=== PATIENT | female | born 2000 | race Two or more races ===

== ENCOUNTER 2020-05-11 18:09 | Inpatient (IN) | payer OTHER ==
[~2020-05-11] VITALS: Ht 152.4 cm; Wt 64.8 kg
--- NOTE | 2020-05-11 18:30 | NUR ---
THIS IS A 19 YO FEMALE COMING IN FROM [facility] FOR PERIUMBILICAL/ EPIGASTRIC ABD PAIN STARTING FRIDAY, N/V, DENIES DIARRHEA. 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 RUQ SONOGRAM DONE AT SENDING FACILITY, FOUND TO HAVE STONE IN NECK OF GALLBLADDER. A&OX4, MONITORING IN PLACE, VSS, NADN, CALL LIGHT IN REACH.
[2020-05-11 18:46] LABS: BASOPHILS # (AUTO) 0.04 x10^3/uL (0-0.3); BASOPHILS % (AUTO) 1 % (0-1); EOSINOPHILS # (AUTO) 0.07 x10^3/uL (0-0.8); EOSINOPHILS % (AUTO) 1 % (1-7); LYMPHOCYTES # (AUTO) 1.91 x10^3/uL (1-6.1); LYMPHOCYTES % (AUTO) 32 % (22-44); MD NO; MEAN CORPUSCULAR HEMOGLOBIN 30.9 pg (27.0-34.8); MEAN CORPUSCULAR HGB CONC 33.5 g/dL (32.4-35.8); MEAN CORPUSCULAR VOLUME 92.3 fL (80-100); MEAN PLATELET VOLUME 10.1 fL (7.4-10.4); MONOCYTES # (AUTO) 0.41 x10^3/uL (0-1.4); MONOCYTES % (AUTO) 7 % (2-9); NEUTROPHILS # (AUTO) 3.59 x10^3/uL (1.8-8.0); NEUTROPHILS % (AUTO) 60 % (42-75); PLATELET COUNT 269 x10^3/uL (130-400); RED CELL DISTRIBUTION WIDTH 13.8 % (9.6-15.2)
[2020-05-11 18:58] LABS: CHLORIDE 105 mmol/L (98-107)
[2020-05-11 19:07] LABS: ALANINE AMINOTRANSFERASE 827 U/L (12-78); ALBUMIN 3.4 g/dL (3.4-5.0); ALKALINE PHOSPHATASE 248 U/L (45-117); ANION GAP 9 mmol/L (5-15); BILIRUBIN,TOTAL 1.8 mg/dL (0.2-1.0); CALCIUM 8.6 mg/dL (8.5-10.1); CREATININE 0.84 mg/dL (0.55-1.02); TOTAL PROTEIN 7.7 g/dL (6.4-8.2)
--- NOTE | 2020-05-11 19:33 | NUR ---
PATIENT RESTING ON GURNEY, RESPIRATIONS EVEN AND UNLABORED, MOTHER IN ROOM AT THIS TIME. AWAITING GI CONSULT.
--- NOTE | 2020-05-11 19:59 | NUR ---
MRI FORM COMPLETED AND FAXED. CONFIRMATION RECEIVED
--- NOTE | 2020-05-11 20:19 | NUR ---
PATIENT TO MRI
[2020-05-11] MEDS ORDERED: ONDANSETRON 2MG/ML, 2ML IVPush PRN ×2 (20:30→21:30)
[2020-05-11] MEDS ORDERED: MORPHINE SULFATE 4 MG/ML, 1ML IVPush PRN (20:30)
--- NOTE | 2020-05-11 20:54 | NUR ---
LUNCH BREAK NOTE: PT BACK FROM MRI. HOSPITALIST AT BEDSIDE.
--- NOTE | 2020-05-11 21:22 | NUR ---
REPORT GIVEN TO JANET TALLEY. PLAN OF CARE DISCUSSED
[2020-05-11] MEDS ORDERED: BISACODYL 10 MG SUPP PR PRN (21:30)
[2020-05-11] MEDS ORDERED: ACETAMINOPHEN 325 MG TABLET PO PRN (21:30)
[2020-05-11] MEDS ORDERED: morphine SULFATE 10 MG/ML, 1ML IVPush PRN (21:30)
[2020-05-11 21:40] VITALS: BP 109/77
[2020-05-11] MEDS: SODIUM CHLORIDE 0.9% 1,000 ML IV SCH (22:21)
[2020-05-12 00:23] VITALS: BP 102/68
[2020-05-12 05:49] LABS: BASOPHILS # (AUTO) 0.05 x10^3/uL (0-0.3); BASOPHILS % (AUTO) 1 % (0-1); EOSINOPHILS % (AUTO) 2 % (1-7); LYMPHOCYTES # (AUTO) 1.95 x10^3/uL (1-6.1); LYMPHOCYTES % (AUTO) 31 % (22-44); MD NO; MEAN CORPUSCULAR HEMOGLOBIN 30.4 pg (27.0-34.8); MEAN CORPUSCULAR HGB CONC 32.7 g/dL (32.4-35.8); MEAN CORPUSCULAR VOLUME 93.1 fL (80-100); MEAN PLATELET VOLUME 10.2 fL (7.4-10.4); MONOCYTES # (AUTO) 0.56 x10^3/uL (0-1.4); MONOCYTES % (AUTO) 9 % (2-9); NEUTROPHILS # (AUTO) 3.57 x10^3/uL (1.8-8.0); NEUTROPHILS % (AUTO) 57 % (42-75); PLATELET COUNT 239 x10^3/uL (130-400); RED BLOOD COUNT 4.59 x10^6/uL (3.82-5.3); RED CELL DISTRIBUTION WIDTH 13.7 % (9.6-15.2)
[2020-05-12 05:52] LABS: ANION GAP 7 mmol/L (5-15); CALCIUM 8.8 mg/dL (8.5-10.1); CHLORIDE 110 mmol/L (98-107)
[2020-05-12 05:57] LABS: ALANINE AMINOTRANSFERASE 714 U/L (12-78); ALKALINE PHOSPHATASE 231 U/L (45-117); BILIRUBIN,TOTAL 2.5 mg/dL (0.2-1.0); CREATININE 0.91 mg/dL (0.55-1.02); TOTAL PROTEIN 6.5 g/dL (6.4-8.2)
[2020-05-12 06:44] VITALS: BP 100/62
[2020-05-12 08:43] LABS: INTERNATIONAL NORMALIZED RATIO 0.97 (0.93-1.1); PROTHROMBIN TIME 10.3 Seconds (9.6-11.5)
[2020-05-12] MEDS: SODIUM CHLORIDE 0.9% 1,000 ML IV SCH (10:14)
[2020-05-12 12:43] VITALS: BP 97/61
[2020-05-12] MEDS ORDERED: ALBUTEROL SULFATE 200 PUFFS/8.5 GR INH ONE (13:34)
[2020-05-12] MEDS ORDERED: CHLORHEXIDINE 15 ML UDC ONE (13:51)
[2020-05-12] MEDS ORDERED: CHLORHEXIDINE 15 ML UDC MM STA (13:53)
[2020-05-12] MEDS ORDERED: SUGAMMADEX 200 MG/2 ML IVPush ONE (14:24)
[2020-05-12] MEDS ORDERED: PROPOFOL 10 MG/ML, 20ML ONE (14:24)
[2020-05-12] MEDS ORDERED: SUCCINYLCHOLINE 20 MG/ML, 10ML ONE (14:24)
[2020-05-12] MEDS ORDERED: ROCURONIUM 10 MG/ML,10ML ONE (14:24)
[2020-05-12] MEDS ORDERED: ONDANSETRON 2MG/ML, 2ML ONE (14:24)
[2020-05-12] MEDS ORDERED: FENTANYL PF 100 MCG/2ML ONE (14:39)
[2020-05-12 18:54] VITALS: BP 88/52
[2020-05-12 21:11] VITALS: BP 88/51
[2020-05-12] MEDS ORDERED: SODIUM CHLORIDE 0.9% 1,000ML IVBOLUS ONE (22:30)
[2020-05-12 23:15] VITALS: BP_SYST 84; BP_SYST 87; BP_DIAS 56; BP_DIAS 60
[2020-05-13] VITALS (7 sets, daily range): BP systolic 84–100; BP diastolic 43–65
[2020-05-13] MEDS ORDERED: SODIUM CHLORIDE 0.9% 1,000 ML IV SCH ×2 (01:00→21:07)
[2020-05-13] MEDS ORDERED: ALBUMIN HUMAN 25% 100 ML IV ONE (01:00)
[2020-05-13 01:49] LABS: BASOPHILS # (AUTO) 0.03 x10^3/uL (0-0.3); BASOPHILS % (AUTO) 1 % (0-1); EOSINOPHILS # (AUTO) 0.11 x10^3/uL (0-0.8); EOSINOPHILS % (AUTO) 2 % (1-7); LYMPHOCYTES # (AUTO) 2.75 x10^3/uL (1-6.1); LYMPHOCYTES % (AUTO) 39 % (22-44); MD NO; MEAN CORPUSCULAR HEMOGLOBIN 30.8 pg (27.0-34.8); MEAN CORPUSCULAR VOLUME 93.4 fL (80-100); MEAN PLATELET VOLUME 10.4 fL (7.4-10.4); MONOCYTES # (AUTO) 0.51 x10^3/uL (0-1.4); MONOCYTES % (AUTO) 7 % (2-9); NEUTROPHILS # (AUTO) 3.58 x10^3/uL (1.8-8.0); NEUTROPHILS % (AUTO) 51 % (42-75); PLATELET COUNT 247 x10^3/uL (130-400); RED BLOOD COUNT 4.87 x10^6/uL (3.82-5.3); RED CELL DISTRIBUTION WIDTH 13.6 % (9.6-15.2)
[2020-05-13 01:53] LABS: ALANINE AMINOTRANSFERASE 682 U/L (12-78); ALBUMIN 3.2 g/dL (3.4-5.0); ANION GAP 8 mmol/L (5-15); CALCIUM 7.9 mg/dL (8.5-10.1); CHLORIDE 110 mmol/L (98-107); CREATININE 0.82 mg/dL (0.55-1.02)
[2020-05-13 01:56] LABS: ALKALINE PHOSPHATASE 244 U/L (45-117); TOTAL PROTEIN 7.8 g/dL (6.4-8.2)
[2020-05-13] MEDS ORDERED: BUPIVACAINE/EPI 0.5% 1:200K ONE (07:01)
[2020-05-13] MEDS ORDERED: SODIUM CHLORIDE 0.9% 1,000ML IVBOLUS ONE ×2 (07:30)
[2020-05-13] MEDS: PIPERACILLIN/TAZO/PMX 3.375GM 50 ML IV SCH ×3 (08:00→20:32)
[2020-05-13] MEDS ORDERED: POTASSIUM CHLORIDE 40 MEQ in SODIUM CHLORIDE 0.9% 500 ML IV ONE (08:00)
[2020-05-13] MEDS ORDERED: MIDAZOLAM 1 MG/ML, 2ML ONE (09:21)
[2020-05-13] MEDS ORDERED: FENTANYL PF 250 MCG/5ML ONE (09:21)
[2020-05-13] MEDS ORDERED: KETOROLAC 30 MG/1 ML ONE (09:34)
[2020-05-13] MEDS ORDERED: CEFOTETAN 2 GM ONE (09:34)
[2020-05-13] MEDS ORDERED: BUPIVACAINE/EPI 0.5% 1:200K IM ONE (09:57)
[2020-05-13] MEDS ORDERED: hydrALAzine 20 MG/ML, 1ML IV PRN (10:00)
[2020-05-13] MEDS ORDERED: OXYcodone 5 MG/5 ML ORAL.SOL UDC PO PRN (10:00)
[2020-05-13] MEDS ORDERED: DIPHENHYDRAMINE 50 MG/ML, 1ML IVPush PRN (10:00)
[2020-05-13] MEDS ORDERED: HALOPERIDOL 5 MG/ML IV PRN (10:00)
[2020-05-13] MEDS ORDERED: LABETALOL 5MG/ML, 20ML IV PRN (10:00)
[2020-05-13] MEDS ORDERED: FENTANYL PF 100 MCG/2ML IV PRN (10:00)
[2020-05-13] MEDS ORDERED: HYDROmorphone 1 MG/ML, 1ML INJ IVPush PRN (10:00)
[2020-05-13] MEDS ORDERED: PROMETHAZINE 25 MG/ML, 1ML IVPush PRN (10:00)
[2020-05-13] MEDS ORDERED: MEPERIDINE/PF 25MG/0.5ML IVPush PRN (10:00)
[2020-05-13] MEDS ORDERED: OXYcodone 5 MG/5 ML ORAL.SOL UDC ONE (10:38)
[2020-05-13] MEDS ORDERED: DEXAMETHASONE 4 MG/ML, 1ML ONE (12:06)
[2020-05-13] MEDS ORDERED: ONDANSETRON 2MG/ML, 2ML ONE (12:06)
[2020-05-13] MEDS ORDERED: NEOSTIGMINE 1 MG/ML, 10ML ONE (12:06)
[2020-05-13] MEDS ORDERED: CEFAZOLIN 1,000 MG ONE (12:06)
[2020-05-13] MEDS ORDERED: ROCURONIUM 10MG/ML,5ML ONE (12:06)
[2020-05-13] MEDS ORDERED: SUCCINYLCHOLINE 20 MG/ML, 10ML ONE (12:06)
[2020-05-13] MEDS ORDERED: GLYCOPYRROLATE 0.2MG/1ML, 5ML ONE (12:06)
[2020-05-13] MEDS ORDERED: PROPOFOL 10 MG/ML, 20ML ONE (12:06)
[2020-05-13] MEDS ORDERED: ONDANSETRON 2MG/ML, 2ML IV PRN (13:00)
[2020-05-13] MEDS: OXYcodone/APAP 5/325MG TABLET PO PRN (22:06)
[2020-05-14] MEDS ORDERED: SODIUM CHLORIDE 0.9% 1,000 ML IV SCH (01:00)
[2020-05-14 01:02] VITALS: BP 87/46
[2020-05-14] MEDS: PIPERACILLIN/TAZO/PMX 3.375GM 50 ML IV SCH ×2 (02:41→08:05)
[2020-05-14] MEDS: OXYcodone/APAP 5/325MG TABLET PO PRN ×3 (02:42→13:29)
[2020-05-14 03:19] VITALS: BP 95/59
[2020-05-14 04:42] LABS: BASOPHILS # (AUTO) 0.03 x10^3/uL (0-0.3); BASOPHILS % (AUTO) 0 % (0-1); EOSINOPHILS # (AUTO) 0.06 x10^3/uL (0-0.8); EOSINOPHILS % (AUTO) 1 % (1-7); LYMPHOCYTES % (AUTO) 28 % (22-44); MD NO; MEAN CORPUSCULAR VOLUME 93.5 fL (80-100); MONOCYTES # (AUTO) 0.62 x10^3/uL (0-1.4); MONOCYTES % (AUTO) 9 % (2-9); NEUTROPHILS % (AUTO) 62 % (42-75); PLATELET COUNT 213 x10^3/uL (130-400); RED BLOOD COUNT 4.16 x10^6/uL (3.82-5.3); RED CELL DISTRIBUTION WIDTH 13.4 % (9.6-15.2)
[2020-05-14 04:43] LABS: ANION GAP 8 mmol/L (5-15); CHLORIDE 111 mmol/L (98-107)
[2020-05-14 04:50] LABS: ALANINE AMINOTRANSFERASE 415 U/L (12-78); ALBUMIN 2.8 g/dL (3.4-5.0); ALKALINE PHOSPHATASE 150 U/L (45-117); BILIRUBIN,TOTAL 0.8 mg/dL (0.2-1.0); CREATININE 0.84 mg/dL (0.55-1.02); TOTAL PROTEIN 6.1 g/dL (6.4-8.2)
[2020-05-14 08:06] VITALS: BP 105/75
[2020-05-14 12:53] VITALS: BP 97/62
[2020-05-14] MEDS ORDERED: AMOX1TAB64 PO (13:09)
[2020-05-14] MEDS ORDERED: METR500T PO (13:09)
[2020-05-14] MEDS ORDERED: POLY17PO5 PO (13:52)
[2020-05-14] MEDS ORDERED: OXYC-302 PO (13:52)
== END 2020-05-14 14:10 | disposition home or self-care (01) | DRG 418 ==
LOC: ED 18:38 → EDIP 20:05 → 3N 21:36 → 4NE 05-13 11:16 → DCLOUNGE 05-14 13:55
PROVIDERS: ADMIT Family Medicine; ATTEND Internal Medicine
PROC: 0F798ZZ Dilation of Common Bile Duct, Via Natural or Artificial Opening Endoscopic (ICD-10-PCS; 2020-05-12)
PROC: BF131ZZ Fluoroscopy of Gallbladder and Bile Ducts using Low Osmolar Contrast (ICD-10-PCS; 2020-05-12)
PROC: 0FT44ZZ Resection of Gallbladder, Percutaneous Endoscopic Approach (ICD-10-PCS; principal; 2020-05-13 08:30)
DX: K80.70 Calculus of gallbladder and bile duct without cholecystitis without obstruction (principal); K80.01 Calculus of gallbladder with acute cholecystitis with obstruction; K83.09 Other cholangitis; D50.9 Iron deficiency anemia, unspecified; E87.6 Hypokalemia; K21.9 Gastro-esophageal reflux disease without esophagitis; Z20.828 Contact with and (suspected) exposure to other viral communicable diseases; Z82.49 Family history of ischemic heart disease and other diseases of the circulatory system; Z79.899 Other long term (current) drug therapy
CPT/HCPCS: 36415; 74181; 74328; 80053; 82533; 83605; 83690; 83735; 84702; 85025; 85610; 87635; 88304; G0378; J0690; J1100; J1885; J2250; J2405; J2543; J2704; J2710; J3010; P9047; C1769; J0330; J3490; J7030